=== PATIENT | female | born 2000 | race Caucasian/White ===

== ENCOUNTER 2024-08-22 23:10 | Emergency (ER) | payer OTHER, SELFPAY ==
[2024-08-22 23:20] VITALS: BP 121/84; PULSE 87; RESP 15; TEMP 36.7; O2SAT 96; BMI 24.2
[2024-08-23 00:08] LABS: Bacteria Urine 2+ /hpf; Hyaline Casts Urine 0.81 /lpf; Squamous Epithelial Cell Urine 0-5 /hpf (0-5); WBC Urine >100 /hpf (0-5)
[2024-08-23 00:09] LABS: Bilirubin Urine Negative (Negative); Blood Urine 3+ (Negative); Glucose Urine UA Negative (Normal); Ketones Urine Negative (Negative); Leukocyte Esterase Urine 3+ (Negative); Nitrate Urine Positive (Negative); Protein Urine Trace (Negative); Specific Gravity, Urine 1.004 (1.005-1.030); Urine Appearance Cloudy (CLEAR); Urine Color Dark Yellow (Yellow); pH Urine 6.5 (5-7)
[2024-08-23 00:10] LABS: Add Urine Culture? Yes
[2024-08-23 01:07] LABS: Basophils % 0.2 %; Eosinophils # 0.1 10^3/uL (0.0-0.8); Hematocrit 39.5 % (36-47); Lymphocytes # 1.3 10^3/uL (0.8-4.8); Lymphocytes % 15.1 %; Mean Corpuscular HGB Conc 34.4 g/dL (30-55); Mean Corpuscular Hemoglobin 32.5 pg (27-33); Mean Corpuscular Volume 94.3 fl (85-98); Mean Platelet Volume 9.6 fL (7.4-10.4); Monocytes # 0.5 10^3/uL (0.2-0.9); Monocytes % 5.3 %; Neutrophils # 6.77 10^3/uL (1.8-7.7); Neutrophils % 78.3 %; Nucleated Red Blood Cells % 0 %; Platelet Count 273 10^3/cmm (157-399); Red Blood Count 4.19 10^6/uL (3.85-5.65); Red Cell Distribution Width 11.8 % (12.1-15.1); White Blood Count 8.66 10^3/uL (3.29-11.43)
[2024-08-23] MEDS: cefTRIAXone 1,000 mg SDV 1000 MG IVP (01:10)
[2024-08-23 01:15] VITALS: BP 112/63; PULSE 76; RESP 16; O2SAT 98
[2024-08-23 01:26] LABS: Lactic Sepsis W/Reflex 0.8 mmol/L (0.5-2.2)
[2024-08-23 01:27] LABS: Alanine Aminotransferase 16 U/L (0-33); Albumin Level 4.1 g/dL (3.5-5.2); Alkaline Phosphatase 75 U/L (35-105); Anion Gap 13.5 (5-19); Aspartate Amino Transferase 19 U/L (0-32); Blood Urea Nitrogen 8 mg/dL (6-20); Calcium 9.2 mg/dL (8.5-10.5); Carbon Dioxide 25 mmol/L (22-29); Chloride 103 mmol/L (98-107); Creatinine Clr Calc Pharmacy 77.5034; Globulin 3.3 g/dL (1.3-4.6); Glomerular Filtration Rate 60.5 mL/min (90-130); Glucose 92 mg/dL (65-115); Osmolality Calculated 284 mOsm/kg (285-295); Potassium 3.5 mmol/L (3.5-5.1); Sodium 138 mmol/L (136-145); Total Bilirubin 0.5 mg/dL (0.15-1.2); Total Protein 7.4 g/dL (6.6-8.7)
[2024-08-23 01:30] VITALS: BP 112/63; PULSE 77; O2SAT 98
--- NOTE | 2024-08-23 01:50 | ED_ITS ---
HPI - Female Genitourinary 2 General: Chief complaint: Urogenital-Female Stated complaint: UTI Symptoms really bad Time Seen by Provider: 08/23/24 01:24 History of Present Illness: 23-year-old female who presents emergenc y room with urinary symptoms. Said this started earlier today. She tried Azo which did not help. Also some cranberry pills. She reports urgency, frequency and burning sensation with urination. Some low back pain. No fevers. No vomiting. She has a history of urinary tract infections in the past. Date of Last Menstrual Period: 08/12/24 Related Data Previous Rx's ?Medication ?Instructions ?Recorded cefdinir 300 mg capsule 300 mg PO BID 7 days #14 cap s 08/23/24 ondansetron 4 mg disintegrating 4 mg PO Q8H PRN nausea and 08/23/24 tablet vomiting #10 tabs phenazopyridine 100 mg tablet 100 mg PO Q8H 6 doses #6 tabs 08/23/24 (Pyridium) Allergies Allergy/AdvReac Type Severity Reaction Status Date / Time No Known Allergies Allergy Verified 08/22/24 23:28 Review of Systems 2 Narrative: Constitutional symptoms: Negative except as documented in HPI. Skin symptoms: Negative except as documented in HPI. Eye symptoms: Negative except as documented in HPI. ENMT symptoms: Negative except as documented in HPI. Respiratory symptoms: Negative except as documented in HPI. Cardiovascular symptoms: Negative except as documented in HPI. Gastrointestinal symptoms: Negative except as documented in HPI. Genitourinary symptoms: Negative except as documented in HPI. Musculoskeletal symptoms: Negative except as documented in HPI. Neurologic symptoms: Negative except as documented in HPI. Psychiatric symptoms: Negative except as documented in HPI. Endocrine symptoms: Negative except as documented in HPI. FORMERLY [facility], 1928–1983 ED 2 Female Reproductive History: Date of last menstrual period: 08/12/24 Physical Exam 2 Narrative: EXAM NARRATIVE: General: Alert, no acute distress. Skin: Warm, dry. Head: Normocephalic, atraumatic. Neck: Supple, trachea midline. Eye: Extraocular movements are intact. Ears, nose, mouth and throat: mucosa moist. Cardiovascular: Regular, Normal peripheral perfusion. Respiratory: Lungs are clear to auscultation, respirations are non-labored, breath sounds are equal, Symmetrical chest wall expansion. Gastrointestinal: Soft, Nontender, Non distended Musculoskeletal: Normal ROM, no deformity. Neurological: Alert and oriented, No focal neurological deficit observed. Psychiatric: Cooperative, appropriate mood & affect. Course 2 Vital Signs: Vital signs: Vital Signs Temperature 98.0 F 08/22/24 23:20 Pulse Rate 77 08/23/24 01:30 Respiratory Rate 16 08/23/24 01:15 Blood Pressure 112/63 08/23/24 01:30 Pulse Oximetry 98 08/23/24 01:30 Oxygen Delivery Me thod Room Air 08/22/24 23:20 MDM - Female Medical Decision Making Medical decision making: Differential diagnosis including but not limited to and based on the above HPI, review of systems and physical exam: Differential diagnosis for patient with dysuria / lower abdominal pain: Ureterolithiasis. Urinary tract infection. Cystitis. With the possibility of sepsis, pyelonephritis and renal failure. Orders placed to evaluate differential diagnosis based on the above differential, HPI and physical exam Lab Review: Laboratory results were reviewed and interpreted by myself the emergency room physician. No leukocytosis. No anemia. No renal failure. Patient does have a significant urinary tract infection. I reviewed the patient's medical record. Reexamination: Patient remained stable. No increased work of breathing. No altered mental status. No focal motor deficits. Assessment and plan: Urinary tract infection ?Rocephin and p.o. Pyridium - Discharged home - Discussed plan with patient. Answered any questions. - Evaluation and treatment of this problem were appropriate in the emergency setting. Lab Data 08/23/24 00:45 08/23/24 00:45 Laboratory Results WBC 8.66 10^3/uL (3.29-11.43) 08/23/24 00:45 RBC 4.19 10^6/uL (3.85-5.65) 08/23/24 00:45 Hgb 13.60 g/dL (11.27-16.99) 08/23/24 00:45 Hct 39.5 % (36-47) 08/23/24 00:45 MCV 94.3 fl (85-98) 08/23/24 00:45 MCH 32.5 pg (27-33) 08/23/24 00:45 MCHC 34.4 g/dL (30-55) 08/23/24 00:45 RDW 11.8 % (12.1-15.1) L 08/23/24 00:45 Plt Count 273 10^3/cmm (157-399) 08/23/24 00:45 MPV 9.6 fL (7.4-10.4) 08/23/24 00:45 Neut % (Auto) 78.3 % 08/23/24 00:45 Lymph % (Auto) 15.1 % 08/23/24 00:45 [place] % (Auto) 5.3 % 08/23/24 00:45 Eos % (Auto) 1.0 % 08/23/24 00:45 Baso % (Auto) 0.2 % 08/23/24 00:45 Neut # (Auto) 6.77 10^3/uL (1.8-7.7) 08/23/24 00:45 Lymph # (Auto) 1.3 10^3/uL (0.8-4.8) 08/23/24 00:45 Mills # (Auto) 0.5 10^3/uL (0.2-0.9) 08/23/24 00:45 Eos # (Auto) 0.1 10^3/uL (0.0-0.8) 08/23/24 00:45 Baso # (Auto) 0.0 10^3/uL (0.0-0.1) 08/23/24 00:45 Nucleated RBC % (auto) 0 % 08/23/24 00:45 Nucleated RBCs # 0.0 /100WBC 08/23/24 00:45 Sodium 138 mmol/L (136-145) 08/23/24 00:45 Potassium 3.5 mmol/L (3.5-5.1) 08/23/24 00:45 Chloride 103 mmol/L (98-107) 08/23/24 00:45 Carbon Dioxide 25 mmol/L (22-29) 08/23/24 00:45 Anion Gap 13.5 (5-19) 08/23/24 00:45 BUN 8 mg/dL (6-20) 08/23/24 00:45 Creatinine 1.1 mg/dL (0.5-0.9) H 08/23/24 00:45 GFR Calculation 60.5 mL/min (90-130) L 08/23/24 00:45 Glucose 92 mg/dL (65-115) 08/23/24 00:45 Calculated Osmolality 284 mOsm/kg (285-295) L 08/23/24 00:45 Lactic Acid 0.8 mmol/L (0.5-2.2) 08/23/24 00:45 Calcium 9.2 mg/dL (8.5-10.5) 08/23/24 00:45 Total Bilirubin 0.5 mg/dL (0.15-1.2) 08/23/24 00:45 AST 19 U/L (0-32) 08/23/24 00:45 ALT 16 U/L (0-33) 08/23/24 00:45 Alkaline Phosphatase 75 U/L (35-105) 08/23/24 00:45 Total Protein 7.4 g/dL (6.6-8.7) 08/23/24 00:45 Albumin 4.1 g/dL (3.5-5.2) 08/23/24 00:45 Globulin 3.3 g/dL (1.3-4.6) 08/23/24 00:45 Urine Color Dark yellow (Yellow) A 08/22/24 23:30 Urine Appearance Cloudy (CLEAR) A 08/22/24 23:30 Urine pH 6.5 (5-7) 08/22/24 23:30 Ur Specific [place] 1.004 (1.005-1.030) L 08/22/24 23:30 Urine Protein Trace (Negative) A 08/22/24 23:30 Urine Glucose (UA) Negative (Normal) 08/22/24 23:30 Urine Ketones Negative (Negative) 08/22/24 23: Urine Blood 3+ (Negative) A 08/22/24 23: Urine Nitrate Positive (Negative) A 08/22/24 23:30 Urine Bilirubin Negative (Negative) 08/22/24 23:30 Urine Urobilinogen 1.0 mg/dL (Negative) 08/22/24 23:30 Ur Leukocyte Esterase 3+ (Negative) A 08/22/24 23:30 Urine RBC 3-5 /hpf (0-2) 08/22/24 23:30 Urine WBC >100 /hpf (0-5) H 08/22/24 23:30 Ur Squamous Epith Cells 0-5 /hpf (0-5) 08/22/24 23: Amorphous Sediment Not Reportable 08/22/24 23:30 Urine Bacteria 2+ /hpf (NONE) H 08/22/24 23:30 Hyaline Casts 0.81 /lpf 08/22/24 23:30 No radiology studies performed this visit Discharge Plan Discharge Patient Disposition: Home Clinical Impression: Urinary tract infection Condition: Stable Prescriptions: New phenazopyridine [Pyridium] 100 mg tablet 100 mg PO Q8H Qty: 6 0RF ondansetron 4 mg tablet,disintegrating 4 mg PO Q8H PRN (Reason: nausea and vomiting) Qty: 10 0RF cefdinir 300 mg capsule 300 mg PO BID 7 Days Qty: 14 0RF Discharge Orders: Discharge ED (Routine); Ordered 08/23/24 Ordered By: Toshia Enciso Discharge Diet: Usual diet Discharge Activity: Increase activity as tolerated Patient Instructions: Urinary Tract Infection in Women (ED), Opioid Safety, Pain Management Activity Restrictions/Additional Instructions: Thank you for choosing [facility] for your healthcare needs today. Please realize this is an emergency room and that we are providing you with a medical screening exam and this may not be complete and all inclusive of all the testing and or work up that you may need to determine your ailment or severity of your illness. You have been screened and evaluated and felt safe for discharge. Health conditions do change or evolve sometimes and as such it is important that you follow up with your Primary Doctor to be re checked, 3-5 days is a general good time frame for follow up. 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
[2024-08-23] MEDS: phenazopyridine 100 mg Tablet 200 MG PO (01:54)
[2024-08-23 03:19] VITALS: BP 106/68; PULSE 80; O2SAT 100
== END 2024-08-23 01:55 | disposition home or self-care (01) ==
PROVIDERS: Emergency Provider Emergency Medicine
DX: N39.0 Urinary tract infection, site not specified (principal)
CPT/HCPCS: 36415; 80053; 81001; 83605; 85025; 87040; 87077; 87086; 87186; 96374; 99284; J0696